=== PATIENT | female | born 1975 | race Two or more races ===

== ENCOUNTER 2022-07-22 09:13 | Outpatient (CLI) | payer BC, SELFPAY ==
[2022-07-22 18:48] LABS: Kit Draw Collected
== END 2022-07-22 09:14 | disposition home or self-care (01) ==
LOC: ANHGOSHLAB 09:15
PROVIDERS: PCP Family Medicine; Visit Provider Nurse Practitioner
DX: E11.9 Type 2 diabetes mellitus without complications (principal); I10 Essential (primary) hypertension
CPT/HCPCS: 36415

== ENCOUNTER 2022-08-05 15:08 | Outpatient (CLI) | payer BC, SELFPAY ==
--- NOTE | ~2022-08-05 | XR_ITS ---
XR chest 2V DATE: 08/05/2022 15:34 INDICATION: Cough. History of asthma. TECHNIQUE: 2 views COMPARISON: None FINDINGS: Normal heart size. No hilar or mediastinal enlargement. No pulmonary infiltrate or consolid ation, pleural effusion or pulmonary vascular congestion or pneumothorax. Included skeletal structure s are unremarkable. IMPRESSION: Negative Reviewed, dictated and finalized at location B. PRESS OPERATOR IMPRESSION: Negative
== END 2022-08-05 15:09 | disposition home or self-care (01) ==
PROVIDERS: PCP Nurse Practitioner; Visit Provider Nurse Practitioner Family
DX: R05.9 Cough, unspecified (principal); J45.30 Mild persistent asthma, uncomplicated
CPT/HCPCS: 71046

== ENCOUNTER 2023-01-07 15:28 | Outpatient (CLI) | payer BC, SELFPAY ==
--- NOTE | ~2023-01-07 | MM_ITS ---
EXAMINATION: MM screening [facility] BI w regine HISTORY: Baseline screening mammogram TECHNIQUE: Craniocaudal and mediolateral oblique 3-D tomosynthesis images were obtained and synthetic 2-D images were generated. CAD analysis was submitted and interpreted. COMPARISON: None, baseline BREAST PARENCHYMAL COMPOSITION: The breasts are heterogeneously dense, which may obscure small masses . FINDINGS: RIGHT BREAST: An asymmetry is present in the middle third of the upper breast on the mediolateral obl ique view. LEFT BREAST: An asymmetry is present in the posterior third of the slightly lower breast 6 cm from th e nipple on the mediolateral oblique view. IMPRESSION: 1. Bilateral breast asymmetries. 2. Additional mammographic views and possible breast ultrasound are recommended to evaluate the bilat eral breast asymmetries and establish a baseline given that this is the first mammographic examinatio n. BI-RADS Category 0: Incomplete: Needs additional imaging evaluation. Reviewed, dictated and finalized at location A. IMPRESSION: 1. Bilateral breast asymmetries. 2. Additional mammographic views and possible breast ultrasound are recommended to evaluate the bilateral breast asymmetries and establish a baseline given th at this is the first mammographic examination. BI-RADS Category 0: Incomplete: Needs additional imaging evaluation.
== END 2023-01-07 15:29 | disposition home or self-care (01) ==
PROVIDERS: PCP Family Medicine; Visit Provider Nurse Practitioner
DX: Z12.31 Encounter for screening mammogram for malignant neoplasm of breast (principal); R92.8 Other abnormal and inconclusive findings on diagnostic imaging of breast
CPT/HCPCS: 77063; 77067

== ENCOUNTER 2023-02-11 11:27 | Outpatient (CLI) | payer BC, SELFPAY ==
--- NOTE | ~2023-02-11 | MMUS_ITS ---
EXAMINATION: MM diagnostic [facility] BI w regine, US breast BI complete HISTORY: Bilateral breast asymmetries reported on 01/07/2023 bilateral screening mammogram. Heterogeneo usly dense breast tissue is present, which may obscure small masses. TECHNIQUE: Additional 3-D tomosynthesis images of both breasts were performed and synthetic 2-D image s were generated. CAD analysis was submitted and interpreted. High resolution complete bilateral clarissa st ultrasound examination including all 4 quadrants and subareolar areas was performed. COMPARISON: 01/07/2023 bilateral screening mammogram FINDINGS: MAMMOGRAPHIC FINDINGS: No suspicious mass or architectural distortion, malignant calcification, skin thickening or retractio n of either breast is detected. ULTRASOUND: Dense fibroglandular stroma is noted throughout both breasts. No suspicious mass or shadowing, cyst o r other significant sonographic finding is noted. IMPRESSION: 1. No mammographic or sonographic evidence of malignancy in either breast 2. Routine annual mammographic screening is recommended BI-RADS Category 1: Negative Reviewed, dictated and finalized at location A. IMPRESSION: 1. No mammographic or sonographic evidence of malignancy in either breast 2. Routine annual mammographic screening is recommended BI-RADS Category 1: Negative
== END 2023-02-11 11:28 | disposition home or self-care (01) ==
PROVIDERS: PCP Family Medicine; Visit Provider Nurse Practitioner Family
DX: R92.8 Other abnormal and inconclusive findings on diagnostic imaging of breast (principal)
CPT/HCPCS: 76641; 77062; 77066; G0279

== ENCOUNTER 2023-08-22 13:53 | Outpatient (CLI) | payer BC, SELFPAY ==
[2023-08-22 14:40] LABS: Anion Gap 6 mmol/L (8-16); Blood Urea Nitrogen 13 mg/dL (7-17); Calcium 9.1 mg/dL (8.4-10.2); Carbon Dioxide 25 mmol/L (22-30); Chloride 103 mmol/L (98-107); Estimated Glomerular Filt Rate 53; Glucose 197 mg/dL (65-110); Potassium 3.6 mmol/L (3.4-5.0); Sodium 134 mmol/L (137-145)
== END 2023-08-22 13:54 | disposition home or self-care (01) ==
LOC: ANHSURGERY 13:55
PROVIDERS: Anesthesiology; PCP Family Medicine; Visit Provider Obstetrics & Gynecology
DX: E11.9 Type 2 diabetes mellitus without complications (principal); Z01.818 Encounter for other preprocedural examination
CPT/HCPCS: 36415; 80048

== ENCOUNTER 2023-09-04 01:00 | Day surgery (SDC) | payer BC, SELFPAY ==
[2023-08-22 14:05] VITALS: BMI 30.7
--- NOTE | 2023-08-22 14:05 | PC.NURSE ---
Addendum entered by Cat Harris RN 08/22/23 14:48: PT AWARE TO STOP VITAMINS/SUPPLEMENTS 08/31/23 Original Note: Report to the Outpatient Waiting Room, entrance under the [facility] located off [facility], at time _0600_ on date _09/04/23_. Planned Procedure Time: _0730_. Time changes happen often and if your time is changed the preop area will call you the afternoon before. - You and your visitor will be asked to self-screen and do not enter if you have any COVID symptoms. - A mask is optional within the hospital at this time. Patients may have clear liquids (water, carbonated beverages, clear teas, apple juice) until 3 hours prior to surgery (0430 AM) with a maximum of 20 ounces. - No food from midnight until time of surgery Take the following medications with a SIP of water the morning of surgery: _AMLODIPINE, & INHALER IF NEEDED_ DO NOT STOP ANY OF YOUR OTHER PRESCRIPTION MEDICATIONS PRIOR TO SURGERY ?EXCEPT THE FOLLOWING Medications to discontinue per ANESTHESIA - _MULTIVITAMIN & SUPPLEMENTS 3 DAYS PRIOR TO SURGERY, Date to take last dose 08/03/23_ Please no make-up, nail arabic, hairspray, perfume, deodorant, or body powder the day of surgery. No jewelry (including any body piercings) or valuables the day of surgery, leave them at home. Please take a shower or bath the night before, or the morning of, surgery with an antibacterial soap. Wear comfortable, loose fitting clothing. - Jewelry must be removed prior to entering the operating room. Rings and piercings that are not removed may be cut off. - The hospital will not accept responsibility for valuables. - Please leave all valuables, including medications, at home the day of surgery. If you are going home after surgery, a licensed peg driver must drive you home. - NO public transportation without another adult if you receive anesthesia. - We recommend that an adult stay with you for 24 hours following discharge. - We also recommend that you do not drive, make important decision, drink alcoholic beverages, or take any drugs that were not prescribed by your health care provider for at least 24 hours after your discharge time. Follow any additional instructions given to you from your surgeon. If you or anyone in your household have experienced Covid symptoms in the past week, please notify your surgeon or the nurse liaison at the phone number below for possible testing. Instructions given to _PATIENT_and asked if any additional questions and then verbalized understanding. Patient advised to call surgeon office or pre surgery nurse liaison [phone] if any additional questions.
--- NOTE | 2023-09-03 19:59 | PM.IMHP ---
H&P: HPI History of Present Illness Date/Time: 09/03/23 19:59 Chief Complaint: Cervical dysplasia Narrative: Cindy is a 47yo [id number], who presents for LEEP. She had a pap smear performed by her PCP. The pap came back LGSIL/HPV +. Three biopsies were obtained and the 6o'clock biopsy was ARPAN 2. ECC was normal, 12o'clock had ARPAN 1. Review of Systems Constitutional: Constitutional: Denies chills, Denies fever(s) and Denies headache(s) Eyes: Eyes: Denies change in vision ENT: Denies dizziness and Denies headache(s) Cardiovascular: Cardiovascular: Denies chest pain and Denies dyspnea Respiratory: Respiratory: Denies cough and Denies dyspnea Gastrointestinal: Gastrointestinal: Denies abdominal pain and Denies change in stool character Genitourinary: Genitourinary: Denies abnormal menses, Denies pelvic pain, Denies vaginal discharge, Denies vaginal odor and Denies vaginal pruritus Neurologic: Denies dizziness and Denies headache(s) Psychiatric: Psychiatric: Denies anxiety and Denies depression [facility] Past Medical History Medical History Diabetes mellitus HTN (hypertension) Hyperlipidemia Rash Family History Family History Father Asthma Alcoholism Mother Diabetes mellitus Social History Social History Social History: Caffeine- daily Smoking status: Never smoker Second hand tobacco smoke exposure: No Alcohol intake: never Substance use: never Substance use type: does not use Lack of Transportation: No Lack of Food: Never True Current Housing: I Have Housing Concerned About Future Housing: No Difficulty Paying Gas/Electric Bills: No Difficulty Paying for Meds: No Currently Unemployed: No Education: High School Diploma/GED Difficulty w/ Childcare or Family Care: No Living arrangements: with family Occupation/Education: occupation Gender identity (if verbalized by the patient): Female Spiritual care concerns: No Meds Home Medications and Allergies Home Medications Medication Instructions Recorded Confirmed Type flaxseed oil 1,000 mg capsule 1,000 mg PO DAILY 10/30/21 08/22/23 History biotin 1 mg capsule 1 mg PO DAILY 04/29/22 08/22/23 History cholecalciferol (vitamin D3) 25 25 mcg PO DAILY 04/29/22 08/22/23 History mcg (1,000 unit) capsule multivitamin 1 tablet PO DAILY 04/29/22 08/22/23 History blood-glucose meter (True Metrix #1 ea 11/05/22 08/22/23 Rx Air Glucose Meter kit) blood sugar diagnostic (True #100 ea 11/06/22 08/22/23 Rx Metrix Glucose Test Strip) methylprednisolone 4 mg tablets in See Rx Instructions PO PER PKG DIR 07/18/23 08/22/23 Rx a dose pack (Medrol (Rikki)) #21 ea triamcinolone acetonide 0.5 % 1 applic topical DAILY #15 grams 07/18/23 08/22/23 Rx topical ointment beclomethasone dipropionate 80 1 inh inhalation Q12H PRN Wheezing 08/22/23 08/22/23 History mcg/actuation HFA breath activated aerosol (Qvar RediHaler) albuterol sulfate 90 mcg/actuation 1 inh inhalation Q4H PRN Wheezing 09/01/23 Rx aerosol inhaler #8.5 grams amlodipine 10 mg tablet 10 mg PO DAILY #90 tabs 09/01/23 Rx metformin 500 mg tablet 500 mg PO DAILY #90 tabs 09/01/23 Rx Allergies Allergy/AdvReac Type Severity Reaction Status Date / Time No Known Allergies Allergy Verified 08/22/23 14:13 Exam Const: General: cooperative, healthy appearing, comfortable and no acute distress Orientation/consciousness: patient oriented x3 Resp: Effort & Inspection: normal respiratory effort Cardio: Rate: regular rate GI: Inspection: normal to inspection GI Palp: No abdominal tenderness and Yes Soft to palpation : Other: deferred to OR Skin: General skin exam: normal color Neuro: General: patient oriented x3 Extrem: General: normal to inspection Psych: Appearance: grossly normal Aff
[2023-09-04 06:03] VITALS: BP 143/79; PULSE 81; RESP 18; TEMP 36.7; O2SAT 100
[2023-09-04] MEDS: ACETAMINOPHEN 500 MG TABLET 1000 MG PO (06:16)
[2023-09-04] MEDS: LACTATED RINGERS 1,000 ML 30 ML IV CONT (06:20)
[2023-09-04 06:28] LABS: Glucose Point of Care 134 mg/dl (65-105)
--- NOTE | 2023-09-04 06:57 | WPDANESEPPF ---
Anes - Initial Pre Proc Eval Procedure: Operation Date: 09/04/23 07:30 Proposed Procedures p Loop Electrical Excision Procedure - Marlene Rivas MD Date/Time: 09/04/23 06:57 Surgeon: Marlene Rivas MD Pre Op Diagnosis: cervical dysplasia Patient Data Age: 47 Gender: F Height: 1.56 m Weight: 74.3 kg Last Vital Signs Temp 98.0 F 09/04/23 06:03 Pulse 81 09/04/23 06:03 Resp 18 09/04/23 06:03 BP 143/79 H 09/04/23 06:03 Pulse Ox 100 09/04/23 06:03 O2 Del Method Room Air 09/04/23 06:03 Allergies Allergy/AdvReac Type Severity Reaction Status Date / Time No Known Allergies Allergy Verified 08/22/23 14:13 Home Medications Medication Instructions Recorded Confirmed Type flaxseed oil 1,000 mg capsule 1,000 mg PO DAILY 10/30/21 09/04/23 History biotin 1 mg capsule 1 mg PO DAILY 04/29/22 09/04/23 History cholecalciferol (vitamin D3) 25 25 mcg PO DAILY 04/29/22 09/04/23 History mcg (1,000 unit) capsule multivitamin 1 tablet PO DAILY 04/29/22 09/04/23 History blood-glucose meter (True Metrix #1 ea 11/05/22 09/04/23 Rx Air Glucose Meter kit) blood sugar diagnostic (True #100 ea 11/06/22 09/04/23 Rx Metrix Glucose Test Strip) methylprednisolone 4 mg tablets in See Rx Instructions PO PER PKG DIR 07/18/23 09/04/23 Rx a dose pack (Medrol (Rikki)) #21 ea triamcinolone acetonide 0.5 % 1 applic topical DAILY #15 grams 07/18/23 09/04/23 Rx topical ointment beclomethasone dipropionate 80 1 inh inhalation Q12H PRN Wheezing 08/22/23 09/04/23 History mcg/actuation HFA breath activated aerosol (Qvar RediHaler) albuterol sulfate 90 mcg/actuation 1 inh inhalation Q4H PRN Wheezing 09/01/23 09/04/23 Rx aerosol inhaler #8.5 grams amlodipine 10 mg tablet 10 mg PO DAILY #90 tabs 09/01/23 09/04/23 Rx metformin 500 mg tablet 500 mg PO DAILY #90 tabs 09/01/23 09/04/23 Rx Laboratory Tests 09/04/23 06:24 POC Capillary Glucose 134 H mg/dl (65-105) Patient hx anesthesia problems: none Family hx anesthesia problems: none Results Review: All pre-operative results and documents have been reviewed as part of the pre-operative evaluation. PMFSH Past Medical History Medical History Diabetes mellitus HTN (hypertension) Hyperlipidemia Rash Family History Family History Father Asthma Alcoholism Mother Diabetes mellitus Social History Social History Social History: Caffeine- daily Smoking status: Never smoker Second hand tobacco smoke exposure: No Alcohol intake: never Substance use: never Substance use type: does not use Lack of Transportation: No Lack of Food: Never True Current Housing: I Have Housing Concerned About Future Housing: No Difficulty Paying Gas/Electric Bills: No Difficulty Paying for Meds: No Currently Unemployed: No Education: High School Diploma/GED Difficulty w/ Childcare or Family Care: No Living arrangements: with family Occupation/Education: occupation Gender identity (if verbalized by the patient): Female Spiritual care concerns: No Anes - Eval Final PreProcedure Day of Procedure 09/04/23 06:57 Patient weight: obese Heart: regular rate and rhythm Lungs: clear to auscultation Airway: Mallampati scale class II and special considerations (Upper teeth missing. ) Neurological: alert and oriented Last oral intake: >/= 8 hours ASA classification: II Emergent: no Anesthetic plan: proceed Anesthesia type and monitoring: general and standard monitoring Other findings: FSBS 134. Results Review: All pre-operative results and documents have been reviewed as part of the pre-operative evaluation. Informed Consent: The patient's anesthetic plan and its attendant risks and benefits were discussed with the patient/family/POA. Questions were solicited
--- NOTE | 2023-09-04 07:11 | WPDHPUPDATE1 ---
History and Physical Update Update Date/Time: 09/04/23 07:11 History and Physical has been reviewed, including an updated exam of the patient. There are NO changes in the patient's condition. Risks, benefits, and alternatives have been discussed and questions answered. Patient agrees to proceed with LEEP, top hat, ECC due to ARPAN 2..
[2023-09-04] MEDS: KETOROLAC 30 MG/ML VIAL (*BKC) IV PUSH (07:44)
[2023-09-04] MEDS: BUPIVACAINE/EPINEPHRINE 0.5% 50 ML VIAL 10 ML INFILTRATE (07:45)
--- NOTE | 2023-09-04 07:59 | P.OP_ITS ---
Procedure Note - Detailed Date of Procedure 09/04/23 Pre-op Diagnosis cervical dysplasia (ARPAN 2) Post-op Diagnosis Same Procedure Performed LEEP, top hat, ECC Surgeon Marlene Rivas MD Anesthesia MAC and Local (10cc of 0.5% Marcaine w/ epi) Findings normal appearing multiparous cervix-- no uptake at 12 and 5-6o'clock. good hemostasis at end of case. Description of Procedure Cindy was taken to the operating room where she was placed under MAC sedation without complications. She was then prepped and draped in the normal fashion in the dorsal lithotomy position with her legs in low Filippo stirrups. A time-out was performed and no preoperative antibiotics were indicated. A coated speculum attached to suction was then placed within the vagina, where the cervix was easily identified. The cervix was then injected with 0.5% Marcaine with epinephrine (10cc were used). Lugol?s solution was then applied to the cervix. No uptake was noted at 12 and between 5-6 o'clock. The LEEP was then obtained in a single swipe from the patient?s left to right. The LEEP was removed and a silk stitch was placed at 12:00 p.m. to orient the tissue for pathology. A top- hat was then obtained in the same manner, but , so was sent as anterior and posterior top hats. An ECC was then collected. The LEEP bed was then cauterized using the roller ball. Good hemostasis was noted. Sponge, lap, instrument, and needle counts were correct at the end of the procedure. The patient was awoken from anesthesia and taken to recovery in a stable condition with plans of same-day discharge home. Estimated Blood Loss 5 IV Fluids 750 Drains No Packing No Pathology Yes (LEEP stitch at 12, ant top hat, post top hat, ECC) Complications No immediate complications Condition Stable Disposition Same day [facility] Billing Surgery - Charge Forward: Surgery Billing
[2023-09-04 08:04] VITALS: BP 113/66; PULSE 90; RESP 14; O2SAT 98
[2023-09-04 08:30] VITALS: BP 148/82; PULSE 77; RESP 16; O2SAT 98
[2023-09-04 09:00] VITALS: BP 127/87; PULSE 78; RESP 16
== END 2023-09-04 09:11 | disposition home or self-care (01) ==
PROVIDERS: PCP Family Medicine; Visit Provider Obstetrics & Gynecology
PROC: 0UBC7ZZ Excision of Cervix, Via Natural or Artificial Opening (ICD-10-PCS; CPT 57522; principal; 2023-09-04 07:30)
DX: N87.0 Mild cervical dysplasia (principal); N72 Inflammatory disease of cervix uteri; I10 Essential (primary) hypertension; E78.5 Hyperlipidemia, unspecified; E11.9 Type 2 diabetes mellitus without complications; E66.9 Obesity, unspecified; Z68.30 Body mass index [BMI] 30.0-30.9, adult; Z79.51 Long term (current) use of inhaled steroids; Z79.84 Long term (current) use of oral hypoglycemic drugs
CPT/HCPCS: 57522; 82948; 88305; 88307; A9270; J1885; J2250; J2405; J2704; J3010; J7030; J7120

== ENCOUNTER 2023-10-17 08:27 | Outpatient (CLI) | payer BC, SELFPAY ==
--- NOTE | ~2023-10-17 | XR_ITS ---
EXAMINATION: XR barium swallow DATE: 10/17/2023 09:11 INDICATION: Feeling of food getting struck in the throat/esophagus TECHNIQUE: The patient drank thick barium, gas-producing crystals, and thin barium. Fluoroscopic spot radiographs of the hypopharynx and esophagus were obtained. Fluoroscopy exposure time was 2.0 minut es. A total of 1232 fluoroscopic images were obtained. Total DAP was 8.679 mGycm^2. COMPARISON: None. FINDINGS: The pharynx is symmetric and without evidence of mass lesion or mucosal irregularity. The e sophagus is normal without mass or stricture. Esophageal motility is normal. There is no hiatal herni a. There was no gastroesophageal reflux with provocative maneuvers. IMPRESSION: 1. Normal esophagram. Reviewed, dictated and finalized at location A. IMPRESSION: 1. Normal esophagram.
== END 2023-10-17 08:28 | disposition home or self-care (01) ==
PROVIDERS: PCP Family Medicine; Visit Provider Nurse Practitioner Family
DX: R13.10 Dysphagia, unspecified (principal); R09.A2 Foreign body sensation, throat
CPT/HCPCS: 74220

== ENCOUNTER 2024-03-31 09:25 | Outpatient (CLI) | payer BC, SELFPAY ==
--- NOTE | ~2024-03-31 | MM_ITS ---
EXAMINATION: MM screening [facility] BI w regine HISTORY: Screening mammogram TECHNIQUE: Craniocaudal and mediolateral oblique 3-D tomosynthesis images were obtained and synthetic 2-D images were generated. CAD analysis was submitted and interpreted. COMPARISON: 01/07/2023 BREAST PARENCHYMAL COMPOSITION:Dense: The breasts are heterogeneously dense, which may obscure small masses. FINDINGS: No suspicious mass, calcification, or architectural distortion are identified in either ashia ast to suggest malignancy. There has been no suspicious interval change. IMPRESSION: No mammographic evidence of malignancy. Recommend routine screening mammography in one year. BI-RADS Category 1: Negative Reviewed, dictated and finalized at location .
== END 2024-03-31 09:26 | disposition home or self-care (01) ==
LOC: ANHIMG 09:27
PROVIDERS: PCP Family Medicine; Visit Provider Family Medicine
DX: Z12.31 Encounter for screening mammogram for malignant neoplasm of breast (principal)
CPT/HCPCS: 77063; 77067

== ENCOUNTER 2024-09-02 10:18 | Outpatient (CLI) | payer BC, SELFPAY ==
--- OUTSIDE RECORDS SUMMARY | 2024-09-02 11:06 | XMS_ITS | Clinical Summary ---
Author Organization [facility] Address [address] [place] [address] Care Team Providers Care Center Director Name Role Phone None, Provider MD Primary Care Provider Unavaila ble Allergies No known active allergies Medications traMADol 50 MG tabletIndication s:Acute Pain < 7 Day Supply Take 1 tablet (50 mg total) by mouth every 6 (six) hours as needed for Pain. Indications : Acute Pain < 7 Day Supply 10 tablet 05/03/2020 Active Blood Pressure Monitor Kit 1 Units by Does not apply route 2 (two) times daily. 1 kit 05/03/2020 Active Social History Tobacco Use Types Packs/Day Years Used Date Smoking Tobacco: Never Smokeless Tobacco: Never Alcohol Use Standard Drinks/Week Comments Never 0 (1 standard drink = 0.6 oz pur e alcohol) AUDIT-C Answer Date Recorded Q1: How often do you have a drink containing alc ohol? 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 Gender Identity Not on file Sexual Orientation Not on file Last Filed Vital Signs Vital Sign Reading Time Taken Comments Blood Pressure 153/81 05/03/2020 12:45 AM EQUIPMENT OPERATING ENGINEER Pulse 83 05/03/2020 12:45 AM EQUIPMENT OPERATING ENGINEER Temperature 37.6 C (99.7 F) 05/03/2020 12:45 AM EQUIPMENT OPERATING ENGINEER Respiratory Rate 19 05/03/2020 12:45 AM EQUIPMENT OPERATING ENGINEER Oxygen Saturation 98% 05/03/2020 12:45 AM EQUIPMENT OPERATING ENGINEER Inhaled Oxygen Concentration - - Weight 76.4 kg (168 lb 6.9 oz) 05/02/2020 8:13 P M EQUIPMENT OPERATING ENGINEER Height 154.9 cm (5' 1 ) 05/02/2020 8:13 PM EQUIPMENT OPERATING ENGINEER Body Mass Index 31.82 05/02/2020 8:13 PM EQUIPMENT OPERATING ENGINEER Plan of Treatment Health Maintenance Due Date Last Done Comments Cervical Cancer Screening Pa p Smear (Age 30 to 64) Every 3 Years 1975 Colorectal Cancer Screening Colonoscopy (10 Years) 1975 Annual Physical 12/06/1978 Hepatitis C 12/06/1993 DTaP, Tdap and Td Vaccines ( 1 - Tdap) 12/06/1994 Hepatitis B Vaccines (1 of 3 - 19+ 3-dose series) 12/06/1994 Cervical Cancer Screening Pa p with HPV Testing (Age 30 to 64) Every 5 Years 12/06/2005 Cervical Cancer Screening with HPV 12/06/2005 Mammogram Screening 2015 COVID-19 Vaccine (2023-2 5 season) 2024 RSV Immunization or 60+ Years (1 - 1-dose 75+ series) 12/06/2050 Meningococcal B Vaccine Aged Out No l onger eligible based on patient's age to complete this topic Meningococcal Vaccine Aged Out No paty anni eligible based on patient's age to complete this topic Pneumococcal Vaccine: Pediat rics (0 to 5 Years) and At-Risk Patients (6 to 64 Years) Aged Out No longer eligible b ased on patient's age to complete this topic RSV Immunizations Under 20 Months Aged Out No longer eligible based on patient's age to complete this topic Insurance GENERIC - COMMERCIAL Care Teams Center Director Relationship Specialty Start Date End Date None, Provider, PCP - General 05/02/20
--- OUTSIDE RECORDS SUMMARY | 2024-09-02 11:06 | XMS_ITS | Continuity of Care Document ---
Author Organization [email or web address] Address [address] [place] [address] Phone Care Team Providers Care Welding Machine Tender Name Role Phone Unavailable Unavailable Unavailable Allergies, Adverse Reactions, Alerts Substance Reaction Status Criticality No Known Allergies Active No Inform ation Procedures Procedure Date Rapid COVID HC PRO PHONE CALL 5-10 MIN OFFICE/OUTPATIENT VISIT, EST OFFICE/OUTPATIENT VISIT, [facility] Advance Directives Directive Yes / No Effective Date File Name No Information Encounters Encounter Description Practice Location Reason(s) For Visit Diagnoses Date Provider Providers Copied on Encounter [facility], [address] [place] [address], [facility], tel:[phone] [place] No Information Jul- 2 No Information [facility], [address] [place] [address], [facility], tel:[phone] [place] covid sx (chief complaint) COVID-19 2 Michael Bautista. [address] [place] [address], [facility][note 2], [place]. [phone] OFFICE/OUTPA TIENT VISIT, EST [facility], [address] [place] [address], [facility], [place] [phone] [facility] F/U LABS (chief complaint) NEGATIVE FOR COVID QUESTIONS (chief complaint) Vitamin D deficiencyElev ated fasting lipid profileElevate d fasting glucosePrehype rtension 1 No Information [facility], [address] [place] [address], [facility], [place] tel:[phone] [facility] labs (chief complaint) negative for covid questions (chief complaint) depression (chief complaint) Screening for cardiovascular conditionVitam in D deficiency 1 No Information OFFICE/OUTPA TIENT VISIT, [facility], [address] [place] [address], [address], [place] tel:[phone] [facility] est. care (chief complaint) negative for covid questions (chief complaint) History of one miscarriageEnc ounter to establish careElevated blood-pressure reading, without diagnosis of hypertension 0 No Information Family History Family Member Type Diagnosis Age At Onset Mother Problem Diabetes mellitus Mother Problem hypertension Immunizations Vaccine Date Status Comments Pneumo (2 yrs or older)(PPV) administered Source: Other Registry MMR administered Source: Other R egistry Tdap administered Source: Other R egistry Influenza, injectable, triva lent, split virus, 5 years and older, Afluria [id number] administered Source: Source Unspe cified Tdap administered Source: Source Unspecified Payers Payer name Insurance type Covered constitution party ID Authoriza tion(s) No Information Social History Type Description Quantity Date Captured Comments Sex Female Smoking Status No Information Chief Complaint And Reason For Visit No Information Reason For Referral Reason For Referral No Information Plan Of Treatment Date Type Action Status Patient Education Coronavirus Disease ([place] VID-19): Care ~ completed Patient Education Learning About Coronavi vicente Disease (C~ completed Patient Education Prediabetes: Care Instr uctions completed Patient Education Learning About Ocular H ypertension completed Future Order: Lab Order CBC W/ D iff ([id number]), Ordered on: Ordered Future Order: Lab Order CMP ([id number]), Or dered on: Ordered Future Order: Lab Order LIPID PA NICOLETTE ([id number]), Ordered on: Ordered Future Order: Lab Order VITAMIN D (25) ([id number]), Ordered on: Ordered History Of Present Illness Encounter Date Complaint History Of Prese nt Illness covid sx (comments) Due to juan rn for Covid-19 the patient was provided service today via a telephone call. Patient was informed that all the same confidentiality/information practices applied. The patient was located in the parking lot at [facility] and the provider was located at [facility] in [facility]. The people participating in this visits were the patient, Cindy Landa, nurse, Zakiya Tellez, and provider Bere Rodriguez APRN, CNP. The visit lasted 10 minutes. All concerns and questions were answered.Patient presents today with complaints of a cough for 5 days. The patient denies any exposure to Covid. The patient is not vaccinated. The patient denies fever, chills, shortness of breath, loss of taste and smell. covid sx Pt presents with complaints of cough for 5 days. Pt denies exposure. Pt is not vaccinated. NEGATIVE FOR COVID QUESTIONS F/U LABS PATIENT PRESENTS FOR FU ON LABWORK(Cindy Lanad presents to the clinic today, along with her Chalino Landa, for a maintenance visit and lab follow-up. She is currently not on any medications but has a known history of hypertension during . She has been taking her BP at home and it ranges from 100-140s/60-80s from 05-31-2020 through today. All of her readings, with the exception of 1, fall within the 120-130s/60-80s range, which places her in a pre-hypertension category. She rides a bicycle along with her , to her appointments and tolerates activity well. She has a follow-up visit for her early May 2020 miscarriage on 06-26-2020, with an ObGyn in [place], [place] Dr. Juárez. She states she does not have any other health concerns today.) labs negative for covid questions depression est. care negative for covid questions est. care (comments) Cindy Maynard rts presents to the clinic today, accompanied by her Chalino Landa, to establish care. Pt states that they were previously seeing a doctor in the [facility] before arriving here. She has a known history of miscarriage at 3 months gestation on 05-02-2020, in which she was transported from [facility] to [place] via ambulance, and was observed overnight. She states she was given a medication called Cytotec to help her body remove the miscarried tissue, but she was not able to go her follow-up visit. I advised the patient that it would be a good idea to at least follow-up with an ObGyn once, to make sure everything is fine. The patient has been checking her blood pressure at home for the month of May and it has been running 100-140s/70-90s. Pt states the following concerns: Blood pressure and family history of diabetesAllergies - NKAMedications - See ListOTC - NoneFlu - 2019Pneumonia - N/AImmunizations - Last Tdap 2019Smoke - NeverAlcohol - DeniesIllicit - DeniesPap - Many years agoMammogram - 2019Colonoscopy - Recommend at age 45Labs - UnknownVision - 2019, reading glasses farsightedDentist - UnknownPMH- See histories pageSurgeries-NoneFamily Hx- See histories section Functional Status Date Functional Assessmen t No Information Instructions Date Instruction Additional Infor hussein Cover your cough was h hands frequently Related to COVID-19 You must quarantine for 10 days after the onset of symptoms Related to COVID-19 Covid is a virus and antibiotics do not help Related to COVID-19 OTC cold/cough medic ations along with Tylenol/Motrin for symptoms Related to COVID-19 Observe worsening si gns and symptoms. Related to COVID-19 If you develop Short ness of breath go to the ER Related to COVID-19 Exercise 5 days a we ek for 30 minutes a day. Weight loss has been shown to have a significant impact on reducing blood pressure. Following a low sodium-diet is also important in managing high blood pressure. Related to Prehypertension Carbohydrate control led diet with emphasis on avoiding sugar-sweetened beverages and added sweeteners. Spread carbohydrate intake consistently throughout the day. Always pair carbohydrate-rich foods with a source of protein. Exercise is recommended 5 days a week at least 30 minutes a day. Related to Elevated fasting glucose You should limit bot h total fat and saturated fat. Limit foods with cholesterol. Eat plenty of soluble fiber. Eat lots of fruits and vegetables. Eat fish that are high in omega-3 fatty acids. Limit salt. Limit alcohol. Follow a carbohydrate controlled diet, reduce processed sugar intake, and moderate to intense exercise for 30 minutes a day most days of the week. Related to Elevated fasting lipid profile Calcium and vitamin D are essential to building strong, dense bones when you're young and to keeping them strong and healthy as you age. The possible benefit of taking vitamin D and calcium supplements is that it helps prevent osteoporosis, thereby decreasing bone fractures. Related to Vitamin D deficiency Increase activity. Related to El evated fasting lipid profile Exercise 5 days a we ek for 30 minutes a day. Weight loss has been shown to have a significant impact on reducing blood pressure. Following a low sodium-diet is also important in managing high blood pressure. Related to Elevated blood-pressure reading, without diagnosis of hypertension Monitor for worsenin g signs and symptoms, report them as necessary. Related to History of one miscarriage Assessments Type Assessment Date No Information Patient Care Teams Name Effective Dates (start - stop) Status Members No Information
[2024-09-02 11:33] LABS: Basophils Absolute Auto 0.1 K/mm3 (0.0-0.1); Eosinophils Percent Auto 0.6 % (0-4.4); Hematocrit 49.3 % (37.0-47.0); Hemoglobin 16.6 g/dL (12.0-15.0); Immature Granulocyte Absolute 0.01 K/mm3 (0.00-0.031); Immature Granulocyte Percent A 0.2 % (0-0.5); Lymphocytes Percent Auto 19.4 % (18.3-44.2); Mean Corpuscular HGB Conc 33.7 g/dl (32-36); Mean Corpuscular Hemoglobin 30.4 pg (26-34); Mean Corpuscular Volume 90.3 fl (80-100); Mean Platelet Volume 10.5 fl (7.4-10.4); Monocytes Absolute Auto 0.4 K/mm3 (0.1-0.6); Monocytes Percent Auto 7.1 % (2.6-8.5); Neutrophils Absolute Auto 4.4 K/mm3 (1.3-6.7); Neutrophils Percent Auto 71.7 % (45.5-73.1); Platelet Count Result 293 k/mm3 (150-375); Red Blood Count 5.46 M/mm3 (4.2-5.4); Red Cell Distribution Width 12.6 % (11.5-14.5); White Blood Count 6.2 K/mm3 (4.5-10.0)
[2024-09-02 13:00] LABS: Hemoglobin A1C 6.7 % (<5.7)
[2024-09-02 19:19] LABS: Alanine Aminotransferase 24 U/L (6-35); Albumin Level 4.7 g/dL (3.5-5.1); Alkaline Phosphatase 59 U/L (38-126); Anion Gap 10 mmol/L (4-12); Aspartate Amino Transferase 48 U/L (14-36); Bilirubin,Total 1.1 mg/dL (0.2-1.3); Blood Urea Nitrogen 17 mg/dL (7-17); Calcium 9.3 mg/dL (8.4-10.2); Carbon Dioxide 27 mmol/L (22-30); Chloride 103 mmol/L (98-107); Cholesterol 262 mg/dL (0-200); Estimated Glomerular Filt Rate > 60; Glucose 135 mg/dL (65-110); HDL Direct 58 mg/dL; Sodium 140 mmol/L (137-145); Triglycerides 224 mg/dL (<150)
[2024-09-02 19:36] LABS: LDL Cholesterol Direct 172 mg/dL
[2024-09-02 20:09] LABS: Vitamin D 25 Hydroxy 32.4 ng/mL
[2024-09-02 20:28] LABS: Creatinine Urine 69.7 mg/dL
[2024-09-02 20:36] LABS: MALB Creatinine Ratio 91.7 mg/g (0-30); Microalbumin Urine Random 63.9 mg/L (0-16.7)
== END 2024-09-02 10:19 | disposition home or self-care (01) ==
LOC: ANHGOSHLAB 10:18
PROVIDERS: PCP Family Medicine; Visit Provider Student in an Organized Health Care Education/Training Program
DX: E78.5 Hyperlipidemia, unspecified (principal); E11.9 Type 2 diabetes mellitus without complications; E55.9 Vitamin D deficiency, unspecified; Z00.00 Encounter for general adult medical examination without abnormal findings; Z13.29 Encounter for screening for other suspected endocrine disorder
CPT/HCPCS: 36415; 80053; 80061; 82043; 82306; 83036; 84443; 85025

== ENCOUNTER 2024-09-10 12:31 | Outpatient (CLI) | payer BC, SELFPAY ==
--- OUTSIDE RECORDS SUMMARY | 2024-09-10 12:34 | XMS_ITS | Clinical Summary ---
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 AUTOMOTIVE SOFTWARE ENGINEER Gender Identity Not on file Sexual Orientation Not on file Last Filed Vital Signs Vital Sign Reading Time Taken Comments Blood Pressure 153/81 05/03/2020 12:45 AM AUTOMOTIVE SOFTWARE ENGINEER Pulse 83 05/03/2020 12:45 AM AUTOMOTIVE SOFTWARE ENGINEER Temperature 37.6 C (99.7 F) 05/03/2020 12:45 AM AUTOMOTIVE SOFTWARE ENGINEER Respiratory Rate 19 05/03/2020 12:45 AM AUTOMOTIVE SOFTWARE ENGINEER Oxygen Saturation 98% 05/03/2020 12:45 AM AUTOMOTIVE SOFTWARE ENGINEER Inhaled Oxygen Concentration - - Weight 76.4 kg (168 lb 6.9 oz) 05/02/2020 8:13 P M AUTOMOTIVE SOFTWARE ENGINEER Height 154.9 cm (5' 1 ) 05/02/2020 8:13 PM AUTOMOTIVE SOFTWARE ENGINEER Body Mass Index 31.82 05/02/2020 8:13 PM AUTOMOTIVE SOFTWARE ENGINEER Plan of Treatment Health Maintenance Due [...] topic Insurance GENERIC - COMMERCIAL Care Teams Data Steward Relationship Specialty Start Date End Date None, Provider, PCP - General 05/02/20
--- OUTSIDE RECORDS SUMMARY | 2024-09-10 12:34 | XMS_ITS | Continuity of Care Document ---
Author Organization [email or web address] Address [address] [place] [address] Phone Care Team Providers Care Sow Farm Technician Name Role Phone Unavailable Unavailable Unavailable Allergies, Adverse Reactions, Alerts Substance Reaction Status Criticality No Known Allergies Active No Inform ation Procedures Procedure Date Rapid COVID HC PRO PHONE CALL 5-10 MIN OFFICE/OUTPATIENT VISIT, EST OFFICE/OUTPATIENT VISIT, [facility] Advance Directives Directive Yes / No Effective Date File Name No Information Encounters Encounter Description Practice Location Reason(s) For Visit Diagnoses Date Provider Providers Copied on Encounter [facility], [address] [place] [address], [facility], tel:[phone] [place] No Information Jul- 2 No Information [facility], [address] [place] [address], [facility], tel:[phone] [place] covid sx (chief complaint) COVID-19 2 Michael Bautista. [address] [place] [address], [facility], [place]. [phone] OFFICE/OUTPA TIENT VISIT, EST [facility], [address] [place] [address], [facility], [place] [phone] [facility] F/U LABS (chief complaint) NEGATIVE FOR COVID QUESTIONS (chief complaint) Vitamin D deficiencyElev ated fasting lipid profileElevate d fasting glucosePrehype rtension 1 No Information [facility], [address] [place] [address], [facility], [place] tel:[phone] [facility] labs (chief complaint) negative for covid questions (chief complaint) depression (chief complaint) Screening for cardiovascular conditionVitam in D deficiency 1 No Information OFFICE/OUTPA TIENT VISIT, [facility], [address] [place] [address], [id number], [place] tel:[phone] [facility] est. care (chief complaint) negative for [...] split virus, 5 years and older, Afluria [id number] administered Source: Source Unspe cified Tdap administered Source: Source Unspecified Payers Payer name Insurance type Covered green party ID Authoriza tion(s) No Information Social [...] Order: Lab Order CBC W/ D iff ([id number]), Ordered on: Ordered Future Order: Lab Order CMP ([id number]), Or dered on: Ordered Future Order: Lab Order LIPID PA NICOLETTE ([id number]), Ordered on: Ordered Future Order: Lab Order VITAMIN D (25) ([id number]), Ordered on: Ordered History Of Present Illness Encounter Date Complaint History Of Prese nt Illness covid sx (comments) Due to juan rn for Covid-19 the patient was provided service today via a telephone call. Patient was informed that all the same confidentiality/information practices applied. The patient was located in the parking lot at [facility] and the provider was located at [facility] in [facility]. The people participating in this visits were [...] LABS PATIENT PRESENTS FOR FU ON LABWORK(Cindy Landa presents to the clinic today, along with [...] miscarriage on 06-26-2020, with an ObGyn in [place], [place] Dr. Juárez. She states she does not have any other health concerns today.) labs negative for covid questions depression est. care negative for covid questions est. care (comments) Cindy Maynard rts presents to the clinic today, accompanied by her Chalino Landa, to establish care. Pt states that they were previously seeing a doctor in the [facility] before arriving here. She has a known history of miscarriage at 3 months gestation on 05-02-2020, in which she was transported from [facility] to [place] via ambulance, and was observed overnight. She [...] was h hands frequently Related to COVID-19 If you develop Short ness of breath go to the ER Related to COVID-19 Observe worsening si gns and symptoms. Related to COVID-19 OTC cold/cough medic ations along with Tylenol/Motrin for symptoms Related to COVID-19 Covid is a virus and antibiotics do not help Related to COVID-19 You must quarantine for 10 days after the onset of symptoms Related to COVID-19 Exercise 5 days a [...]
== END 2024-09-10 12:32 | disposition home or self-care (01) ==
LOC: ANHLAB 12:32
PROVIDERS: PCP Family Medicine; Visit Provider Family Medicine
DX: N39.0 Urinary tract infection, site not specified (principal)
CPT/HCPCS: 87077; 87086; 87186

== ENCOUNTER 2024-10-14 02:40 | Day surgery (SDC) | payer BC, SELFPAY ==
[2024-10-05 12:45] VITALS: BMI 31.2
--- OUTSIDE RECORDS SUMMARY | 2024-10-14 02:43 | XMS_ITS | Clinical Summary ---
Author Organization [facility] Address [address] [place] [address] Care Team Providers Care Metal Welder Name Role Phone None, Provider MD Primary [...] on file Legal Sex Female 8:00 PM PRODUCTION LINE SOLDERER Gender Identity Not on file Sexual Orientation Not on file Last Filed Vital Signs Vital Sign Reading Time Taken Comments Blood Pressure 153/81 05/03/2020 12:45 AM PRODUCTION LINE SOLDERER Pulse 83 05/03/2020 12:45 AM PRODUCTION LINE SOLDERER Temperature 37.6 C (99.7 F) 05/03/2020 12:45 AM PRODUCTION LINE SOLDERER Respiratory Rate 19 05/03/2020 12:45 AM PRODUCTION LINE SOLDERER Oxygen Saturation 98% 05/03/2020 12:45 AM PRODUCTION LINE SOLDERER Inhaled Oxygen Concentration - - Weight 76.4 kg (168 lb 6.9 oz) 05/02/2020 8:13 P M PRODUCTION LINE SOLDERER Height 154.9 cm (5' 1 ) 05/02/2020 8:13 PM PRODUCTION LINE SOLDERER Body Mass Index 31.82 05/02/2020 8:13 PM PRODUCTION LINE SOLDERER Plan of Treatment Health Maintenance Due Date [...] 5 Years) and At-Risk Patients (6 to 49 Years) Aged Out No longer eligible b ased on patient's age to complete this topic RSV Immunizations Under 20 Months Aged Out No longer eligible based on patient's age to complete this topic Insurance GENERIC - COMMERCIAL Care Teams Metal Welder Relationship Specialty Start Date End Date None, Provider, PCP - General 05/02/20
--- OUTSIDE RECORDS SUMMARY | 2024-10-14 02:43 | XMS_ITS | Continuity of Care Document ---
Author Organization [facility] Address [address] [place] [address] Phone Care Team Providers Care Regulator Tester Name Role Phone Unavailable Unavailable Unavailable Allergies, [...] Diagnoses Date Provider Providers Copied on Encounter [facility], [address] [place] [address], [facility], tel:[phone] [place] No Information Jul- 2 No Information [facility], [address] [place] [address], [facility], tel:[phone] [place] covid sx (chief complaint) COVID-19 2 Michael Bautista. [address] [place] [address], [facility], [place]. [phone] OFFICE/OUTPA TIENT VISIT, EST [facility], [address] [place] [address], [facility], [place] [phone] [facility] F/U LABS (chief complaint) NEGATIVE FOR COVID QUESTIONS (chief complaint) Vitamin D deficiencyElev ated fasting lipid profileElevate d fasting glucosePrehype rtension [address] [facility], [address] [place] [address], [facility], [place] tel:[phone] [facility] labs (chief complaint) negative for covid questions (chief complaint) depression (chief complaint) Screening for cardiovascular conditionVitam in D deficiency 1 No Information OFFICE/OUTPA TIENT VISIT, [facility], [address] [place] [address], [address], [place] tel:[phone] [facility] est. care (chief complaint) negative for covid [...] split virus, 5 years and older, Afluria [id number] administered Source: Source Unspe cified Tdap administered [...] Order: Lab Order CBC W/ D iff ([id number]), Ordered on: Ordered Future Order: Lab Order CMP ([id number]), Or dered on: Ordered Future Order: Lab Order LIPID PA NICOLETTE ([id number]), Ordered on: Ordered Future Order: Lab Order VITAMIN D (25) ([id number]), Ordered on: Ordered History Of Present Illness Encounter Date Complaint History Of Prese nt Illness covid sx (comments) Due to juan rn for Covid-19 the patient was provided service today via a telephone call. Patient was informed that all the same confidentiality/information practices applied. The patient was located in the parking lot at [facility] and the provider was located at [facility] in [facility]. The people participating in this visits [...] miscarriage on 06-26-2020, with an ObGyn in [place], [place] Dr. Juárez. She states she does not have any other health concerns today.) labs negative for covid questions depression est. care negative for covid questions est. care (comments) Cindy Maynard rts presents to the clinic today, accompanied by her Chalino Landa, to establish care. Pt states that they were previously seeing a doctor in the [facility] before arriving here. She has a known history of miscarriage at 3 months gestation on 05-02-2020, in which she was transported from [facility] to [place] via ambulance, and was observed overnight. She [...]
[2024-10-14 12:55] VITALS: BP 173/96; PULSE 84; RESP 20; TEMP 36.2; O2SAT 100; BMI 30.1
[2024-10-14 12:58] LABS: BEDSIDEPREGUCG Negative (Negative)
[2024-10-14 13:12] LABS: Glucose Point of Care 121 mg/dl (65-105)
[2024-10-14] MEDS: LACTATED RINGERS 1,000 ML 150 ML IV CONT (13:12)
[2024-10-14 13:13] VITALS: BP 153/82
--- NOTE | 2024-10-14 13:18 | WPDANESEPPF ---
Anes - Initial Pre Proc Eval Procedure: Operation Date: 10/14/24 14:00 Proposed Procedures p Screening Colonoscopy - Anish Moura MD Date/Time: 10/14/24 13:18 Surgeon: Anish Moura MD Pre Op Diagnosis: Screening Patient Data Age: 48 Gender: F Height: 1.55 m Weight: 72.4 kg Last Vital Signs Temp 36.2 C L 10/14/24 12:55 Pulse 84 10/14/24 12:55 Resp 20 10/14/24 12:55 BP 153/82 H 10/14/24 13:13 Pulse Ox 100 10/14/24 12:55 O2 Del Method Room Air 10/14/24 12:55 Allergies Allergy/AdvReac Type Severity Reaction Status Date / Time No Known Allergies Allergy Verified 10/14/24 12:52 Home Medications Medication Instructions Recorded Confirmed Type biotin 1 mg capsule 1 mg PO DAILY 04/29/22 10/14/24 History multivitamin 1 tablet PO DAILY 04/29/22 10/14/24 History blood-glucose meter (True Metrix #1 ea 11/05/22 10/05/24 Rx Air Glucose Meter kit) blood sugar diagnostic (True #100 ea 11/06/22 10/05/24 Rx Metrix Glucose Test Strip) albuterol sulfate 2.5 mg/3 mL 2.5 mg (3 mL) inhalation Q4-6H PRN 06/08/24 10/05/24 Rx (0.083 %) solution for nebulization shortness of breath or wheezing #180 mL albuterol sulfate 90 mcg/actuation 1 - 2 inh inhalation Q4-6H PRN 06/14/24 10/05/24 Rx aerosol inhaler shortness of breath or wheezing #8.5 grams beclomethasone dipropionate 80 1 inh inhalation Q12H PRN Wheezing 07/21/24 10/05/24 Rx mcg/actuation HFA breath activated #10.6 grams aerosol (Qvar RediHaler) amlodipine 10 mg tablet 10 mg PO DAILY #90 tabs 09/02/24 10/14/24 Rx clobetasol 0.05 % topical ointment 1 applic topical BID 2 weeks #60 09/02/24 10/05/24 Rx grams metformin 500 mg tablet 500 mg PO DAILY #90 tabs 09/02/24 10/14/24 Rx triamcinolone acetonide 0.5 % 1 applic topical DAILY #15 grams 09/02/24 10/14/24 Rx topical ointment atorvastatin 20 mg tablet (Lipitor) 20 mg PO DAILY #90 tabs 09/06/24 10/14/24 Rx Laboratory Tests 10/14/24 10/14/24 12:55 13:07 POC Capillary Glucose 121 H mg/dl (65-105) POC Urine HCG, Qual Negative (Negative) Patient hx anesthesia problems: none Family hx anesthesia problems: none Results Review: All pre-operative results and documents have been reviewed as part of the pre-operative evaluation. [facility] Past Medical History Medical History Rash Hyperlipidemia Diabetes mellitus HTN (hypertension) Surgical History Surgical History H/O LEEP 09/04/2023 Family History Family History Father Asthma Alcoholism Mother Diabetes mellitus Social History Social History Social History: Caffeine- daily Smoking status: Never smoker Second hand tobacco smoke exposure: No Alcohol intake: never Drinks per week: 2 Substance use: never Substance use type: does not use Lack of Transportation: No Lack of Food: Never True Current Housing: I Have Housing Concerned About Future Housing: No Difficulty Paying Gas/Electric Bills: No Difficulty Paying for Meds: No Currently Unemployed: No Education: High School Diploma/GED Difficulty w/ Childcare or Family Care: No Living arrangements: with family Occupation/Education: occupation Gender identity (if verbalized by the patient): Female Spiritual care concerns: No Anes - Eval Final PreProcedure Day of Procedure 10/14/24 13:18 Patient weight: obese Heart: regular rate and rhythm Lungs: clear to auscultation Airway: Mallampati scale class II Neurological: alert and oriented Last oral intake: >/= 8 hours ASA classification: III Emergent: no Anesthetic plan: proceed Anesthesia type and monitoring: general GIVS and standard monitoring Results Review: All pre-operative results and documents have been reviewed as part of the pre-operative evaluation. Informed Consent: The patient's anesthetic plan and its attendant risks and benefits were discussed with the patient/family/POA. Questions were solicited and answers provided to the satisfaction of the patient/family/POA.
--- NOTE | 2024-10-14 13:42 | PM.IMHP ---
H&P: HPI History of Present Illness Date/Time: 10/14/24 13:42 Chief Complaint: Screening colonoscopy Narrative: This is the patient's first colonoscopy. There are no GI symptoms and there is no family history of colorectal cancer. Review of Systems Review of Systems: All systems reviewed & are unremarkable except as noted in HPI and below PMFSH Past Medical History Medical History Rash Hyperlipidemia Diabetes mellitus HTN (hypertension) Surgical History Surgical History H/O LEEP 09/04/2023 Family History Family History Father Asthma Alcoholism Mother Diabetes mellitus Social History Social History Social History: Caffeine- daily Smoking status: Never smoker Second hand tobacco smoke exposure: No Alcohol intake: never Drinks per week: 2 Substance use: never Substance use type: does not use Lack of Transportation: No Lack of Food: Never True Current Housing: I Have Housing Concerned About Future Housing: No Difficulty Paying Gas/Electric Bills: No Difficulty Paying for Meds: No Currently Unemployed: No Education: High School Diploma/GED Difficulty w/ Childcare or Family Care: No Living arrangements: with family Occupation/Education: occupation Gender identity (if verbalized by the patient): Female Spiritual care concerns: No Meds Home Medications and Allergies Home Medications Medication Instructions Recorded Confirmed Type biotin 1 mg capsule 1 mg PO DAILY 04/29/22 10/14/24 History multivitamin 1 tablet PO DAILY 04/29/22 10/14/24 History blood-glucose meter (True Metrix #1 11/05/22 10/05/24 Rx Air Glucose Meter kit) blood sugar diagnostic (True #100 11/06/22 10/05/24 Rx Metrix Glucose Test Strip) albuterol sulfate 2.5 mg/3 mL 2.5 mg (3 mL) inhalation Q4-6H PRN 06/08/24 10/05/24 Rx (0.083 %) solution for nebulization shortness of breath or wheezing #180 mL albuterol sulfate 90 mcg/actuation 1 - 2 inh inhalation Q4-6H PRN 06/14/24 10/05/24 Rx aerosol inhaler shortness of breath or wheezing #8.5 grams beclomethasone dipropionate 80 1 inh inhalation Q12H PRN Wheezing 07/21/24 10/05/24 Rx mcg/actuation HFA breath activated #10.6 grams aerosol (Qvar RediHaler) amlodipine 10 mg tablet 10 mg PO DAILY #90 tabs 09/02/24 10/14/24 Rx clobetasol 0.05 % topical ointment 1 applic topical BID 2 weeks #60 09/02/24 10/05/24 Rx grams metformin 500 mg tablet 500 mg PO DAILY #90 tabs 09/02/24 10/14/24 Rx triamcinolone acetonide 0.5 % 1 applic topical DAILY #15 grams 09/02/24 10/14/24 Rx topical ointment atorvastatin 20 mg tablet (Lipitor) 20 mg PO DAILY #90 tabs 09/06/24 10/14/24 Rx Allergies Allergy/AdvReac Type Severity Reaction Status Date / Time No Known Allergies Allergy Verified 10/14/24 12:52 Vital Signs Vital Signs - 24 hr 10/14/24 12:55 10/14/24 13:13 Temperature 97.1 F L Pulse Rate 84 Respiratory Rate 20 Blood Pressure 173/96 H 153/82 H Pulse Oximetry 100 Oxygen Delivery Room Air Exam Const: General: cooperative and healthy appearing Resp: Effort & Inspection: normal respiratory effort and able to speak in complete sentences Auscultation: clear to auscultation bilaterally Cardio: Rate: regular rate Rhythm: regular rhythm GI: Inspection: normal to inspection GI Palp: No No hepatosplenomegaly present Auscultation: normal bowel sounds Rectal Exam: deferred Skin: General skin exam: normal color Psych: Appearance: grossly normal Mental Status: mental status grossly normal Assessment and Plan Assessment and plan (1) Screening for colon cancer: Code(s): Z12.11 - Encounter for screening for malignant neoplasm of colon Status: Acute Assessment and Plan: The patient is deemed a good candidate for the procedure. Consent signed. Will proceed.
[2024-10-14 14:10] VITALS: BP 129/79; PULSE 77; RESP 19; O2SAT 98
[2024-10-14 14:20] VITALS: BP 156/94; PULSE 69; RESP 15; O2SAT 100
[2024-10-14 14:30] VITALS: BP 171/89; PULSE 71; RESP 16; O2SAT 100
== END 2024-10-14 14:47 | disposition home or self-care (01) ==
PROVIDERS: Anesthesiology; PCP Family Medicine; Referring Provider Student in an Organized Health Care Education/Training Program; Visit Provider Internal Medicine Gastroenterology
PROC: 0DJD8ZZ Inspection of Lower Intestinal Tract, Via Natural or Artificial Opening Endoscopic (ICD-10-PCS; CPT 45378; principal; 2024-10-14 14:00)
DX: Z12.11 Encounter for screening for malignant neoplasm of colon (principal); K63.5 Polyp of colon; K57.30 Diverticulosis of large intestine without perforation or abscess without bleeding; E78.5 Hyperlipidemia, unspecified; E11.9 Type 2 diabetes mellitus without complications; I10 Essential (primary) hypertension; E66.9 Obesity, unspecified; Z68.30 Body mass index [BMI] 30.0-30.9, adult; Z79.51 Long term (current) use of inhaled steroids; Z79.84 Long term (current) use of oral hypoglycemic drugs; Z98.890 Other specified postprocedural states
CPT/HCPCS: 45385; 82948; 88305; J2003; J2704; J7120

== ENCOUNTER 2025-05-06 13:41 | Outpatient (CLI) | payer BC, SELFPAY ==
--- NOTE | ~2025-05-06 | MM_ITS ---
EXAMINATION: MM screening jerry BI w regine HISTORY: Screening. TECHNIQUE: Craniocaudal and mediolateral oblique 3-D tomosynthesis images were obtained and synthetic 2-D images were generated. CAD analysis was submitted and interpreted. COMPARISON: 2023 and 2022 BREAST PARENCHYMAL COMPOSITION: Dense: The breasts are heterogeneously dense FINDINGS: No suspicious masses are seen. There are no suspicious calcifications. No unexplained architectural distortion is seen. There are no skin or nipple abnormalities identified. There is no adenopathy seen on the images submitted. IMPRESSION: No mammographic or sonographic evidence to suggest malignancy is seen. The patient may return to screening mammography as per ACR guidelines. BI-RADS 1 - Negative. Reviewed, dictated and finalized at location B. [employer] IMPRESSION: No mammographic or sonographic evidence to suggest malignancy is seen. The zeus ent may return to screening mammography as per ACR guidelines. BI-RADS 1 - Negative.
== END 2025-05-06 13:42 | disposition home or self-care (01) ==
PROVIDERS: PCP Family Medicine; Visit Provider Obstetrics & Gynecology
DX: Z12.31 Encounter for screening mammogram for malignant neoplasm of breast (principal)
CPT/HCPCS: 77063; 77067